=== PATIENT | female | born 1975 | race Caucasian/White ===

== ENCOUNTER → 2016-11-25 | Outpatient (CLI) | payer BC, OTHER ==
[~2016-11-25] MED LIST: BIOT1CAP3 PO; CLR10 PO; CYAN1TAB18 PO; FIBE1CHW PO; HYDR25TA4 PO; KETO10TA PO; MULT1CHW18 PO; OMEP40CA PO; OXYC1TAB3 PO; PROC1TAB5 PO; RIZA10TA18 PO; VENL75CA PO; VIT B12 PO; ZNTT/150 PO; [UNRECOGNIZED DRUG - CODE] PO
--- NOTE | 2016-12-06 16:28 | MAMMOGRAPHY REPORT ---
BILATERAL DIGITAL SCREENING MAMMOGRAM TOMOSYNTHESIS WITH CAD: 11/25/2016 CLINICAL HISTORY: Routine screening. Patient has no complaints. . TECHNIQUE: Bilateral breast tomosynthesis in addition to standard 2D mammography was performed. Curr ent study was also evaluated with a Computer Aided Detection (CAD) system. COMPARISON: Comparison is made to exams dated: 11/25/2010 mammogram and 12/04/2010 mammogram - [facility]. BREAST COMPOSITION: The tissue of both breasts is heterogeneously dense, which may obscure small ma sses. FINDINGS: There is a newly visualized asymmetry in the far posterior right breast, along the collections director ior nipple line on the MLO view that could correlate with nodularity in the slightly medial or later al far posterior right breast on the CC view. Additional spot compression tomosynthesis views and p ossibly ultrasound are recommended. A bilobed 13 mm asymmetry in the lateral posterior right breast on the CC view appears somewhat similar to the prior mammogram from 2010, although spot compression tomosynthesis views and possible ultrasound are recommended. A new 6.2 mm nodular asymmetry is see n in the middle one third of the left breast, slightly inferior to the posterior nipple line on the MLO view, but thought to project along the posterior nipple line on the CC view. Additional spot co mpression tomosynthesis views and possibly ultrasound are recommended. There are stable intramammary lymph nodes in each upper outer quadrant. No focal area of architectu ral distortion or suspicious clustered microcalcification is seen bilaterally. IMPRESSION: ACR BI-RADS CATEGORY 0: INCOMPLETE EVALUATION: NEED ADDITIONAL IMAGING EVALUATION The bilateral breast asymmetries need additional imaging evaluation. The patient will be called to schedule an appointment. Approximately 10% of breast cancers are not detected with mammography. A negative mammographic repor t should not delay biopsy if a clinically suggestive mass is present. Gianna Stephens M.D. ay/:12/06/2016 16:18:57 Doughnut Fryer: Karin VASQUES)(Collette), [facility] letter sent: Addl Imaging 0 BI-RADS Code: ACR BI-RADS Category 0: Incomplete Evaluation: Need Additional Imaging Evaluation
== END | disposition home or self-care (01) ==
LOC: C.MAMM 14:04
PROVIDERS: ATTEND Obstetrics & Gynecology
DX: Z12.31 Encounter for screening mammogram for malignant neoplasm of breast (principal)

== ENCOUNTER → 2016-12-15 | Outpatient (CLI) | payer OTHER ==
--- NOTE | 2016-12-15 14:54 | MAMMOGRAPHY REPORT ---
BILATERAL DIGITAL DIAGNOSTIC MAMMOGRAM TOMOSYNTHESIS AND TARGETED BILATERAL ULTRASOUND: 12/15/2016 CLINICAL HISTORY: Bilateral Asymmetries. TECHNIQUE: Breast tomosynthesis in addition to standard 2D mammography was performed. Bilateral sp ot compression CC and MLO tomosynthesis images including C views were obtained. COMPARISON: Comparison is made to exams dated: 12/04/2010 mammogram, 11/25/2010 mammogram - [facility], and 11/25/2016 mammogram - [facility]. BREAST COMPOSITION: The tissue of both breasts is heterogeneously dense, which may obscure small ma sses. FINDINGS: The previously described nodular asymmetry seen within the right breast on the MLO view e ffaces on the spot compression views and is felt to represent normal fibroglandular tissue. There i s a persistent nodular asymmetry in the right lateral posterior breast seen on the cc view only, whi ch is predominantly obscured by surrounding fibroglandular tissue. The asymmetry appears similar on the spot compression and screening mammogram views to the prior 2011 exam. In the left breast, there is a lobulated circumscribed 7 mm mass seen within the left slightly super ior breast, thought to project laterally based on the tomosynthesis localizer bar. On the spot comp ression cc view, there is an 11 mm asymmetry seen within the left medial breast, which appears simil ar to the prior 2011 exam. Targeted ultrasound was performed of the area of the asymmetries. In the left breast at 3:00, 4 cm from the nipple, there is a lobulated circumscribed mass which measures 5 x 5 mm, which has an echog enic fatty hilum centrally and a peripheral hypoechoic cortex and central internal vascularity. Thi s corresponds with the lobulated circumscribed mass on the MLO view and is consistent with a benign intramammary lymph node. In the left breast at 11:00, 3 cm from the nipple, there is a mass versus 2 adjacent hypoechoic masses, which measures 10 x 4 x 7 mm in conglomerate. This likely correlates with the mammographic asymmetry which is likely stable dating back to the 2010 exam although difficu lt to make an accurate mammographic comparison due to obscured margins. The options of short interv al follow-up versus biopsy were discussed with the patient, and she prefers biopsy. Targeted ultrasound was performed of the right lateral breast in the region of the other mammographi c asymmetry. In the right breast at 10:00, 7 cm from the nipple, there is an oval parallel circumsc ribed 8 x 4 x 7 mm mass. This is thought to correlate with the mammographic asymmetry which has lik maxwell been stable compared to the 2011 exam. The option of short interval follow-up versus biopsy wer e discussed with the patient, and she prefers biopsy. IMPRESSION: ACR BI-RADS CATEGORY 4A: LOW SUSPICION FOR MALIGNANCY, TARGETED ULTRASOUND ACR BI-RADS CATEGORY 4A: LOW SUSPICION FOR MALIGNANCY 1. Hypoechoic 10 mm mass in the left breast at 11:00, and hypoechoic 8 mm mass seen within the right breast at 10:00 on ultrasound. These are thought to correlate with mammographic asymmetries which have possibly been stable since 2011. The options of short interval follow-up versus biopsy were di scussed with the patient, and she prefers biopsy. Therefore, ultrasound guided biopsy x2 is recomme nded for further evaluation. 2. Benign 5 mm intramammary lymph node in the left breast at 3:00. A phone call was made to the physician's office to confirm faxed results were received. The patient has been verbally notified of the results. She tentatively scheduled the biopsies before leaving t he department. Approximately 10% of breast cancers are not detected with mammography. A negative mammographic repor t should not delay biopsy if a clinically suggestive mass is present. Hemalatha Gonzalez M.D. ah/:12/15/2016 12:10:33 Top Bottom Attaching Machine Operator: Lakshmi DAWSON(Ida)(Collette), [facility] letter sent: Abnormal 4/5 BI-RADS Code: ACR BI-RADS Category 4A: Low Suspicion For Malignancy Ultrasound BI-RADS: ACR BI-RADS Category 4A: Low Suspicion For Malignancy
== END | disposition home or self-care (01) ==
LOC: C.MAMM 09:23
PROVIDERS: ATTEND Obstetrics & Gynecology
DX: N63 Unspecified lump in breast (principal)

== ENCOUNTER → 2016-12-31 | Outpatient (CLI) | payer OTHER ==
--- NOTE | 2016-12-31 08:34 | Discharge Instructions ---
Discharge Instructions Procedure Procedure Date: Dec 31, 2016. Reason for visit: Bilateral Masses. Discharge Discharge Date: Dec 31, 2016. Discharge Diagnosis: status post breast biopsies Instructions Activity Recommendations: Additional Limitations (see below) Return to School/Work: no limitations Recommended Home Diet: No Limitations Provider Instructions: ACTIVITY RECOMMENDATIONS: * No lifting, pushing, pulling or exercising the affected side for three days. RETURN TO SCHOOL/WORK: * You may return to work/school after the procedure, but do not perform any strenuous activities for 24 to 48 hours. MEDICATIONS: * Tylenol (two 325 mg) every four to six hours if needed for mild pain (if not allergic to Tylenol). DIET: * Resume previous diet. SPECIAL CARE INSTRUCTIONS: * Keep biopsy site dry for 24 hours. May shower after 24 hours, but do not soak (bathe) incision. * May remove Tegaderm (plastic patch) tomorrow AFTER showering. * Leave the steri-strips on for one week. Allow the steri-strips to fall off by themselves. If not off after one week, you may remove them. You may place a Bandaid crosswise over the strips, if desired. * Apply ice 10 minutes on and 10 minutes off as needed. * Wear a bra at bedtime to sleep more comfortably for 2-3 days. * Your referring physician should have the results after approximately 5 to 7 business days. * Call for unusual bleeding, fever, drainage, etc or if you have any questions call during normal business hours or after hours call Dr Gonzalez, . FOLLOW UP VISIT: Follow-up with Referring Physician as scheduled. Allergies Coded Allergies: Codeine (Verified Adverse Reaction, Intermediate, NAUSEA AND VOMITING, ) Roselyn Puckett Recommendations: Call your doctor if: * Temperature above 101 degrees * Pain not relieved by pain medicine ordered * There is increased drainage or redness from any incision * You have any unanswered questions or concerns. Your Doctors Instructions noted above were prepared by provider Hemalatha Gonzalez. Patient Signature Section: Patient Instructions Signature Page Rosalind Carballo Patient (or Guardian) Signature/Date: I have read and understand the instructions given to me by my caregivers. Caregiver/RN/Doctor Signature/Date: The above-named patient and/or guardian has received patient instructions on this date. + Original Patient Signature Page (only) stays with chart. Please make copy for patient.
--- NOTE | 2016-12-31 14:23 | MAMMOGRAPHY REPORT ---
ULTRASOUND GUIDED BIOPSY RIGHT BREAST: 12/31/2016 CLINICAL HISTORY: Right 10:00 breast mass. PATIENT CONSENT: The procedure, risks and benefits were discussed with the patient and informed writt en consent was obtained. A timeout was performed immediately prior to the procedure. PROCEDURE DESCRIPTION: With ultrasound guidance, aseptic technique, and lidocaine as the local anesth etic (1% lidocaine to anesthetize the skin and 1% lidocaine with epinephrine to anesthetize the deepe r tissues), the mass of concern in the right 10:00 breast was sampled 3 times with a 14-gauge Achieve biopsy needle. Immediately thereafter, with ultrasound guidance, aseptic technique, and lidocaine a s the local anesthetic, a metallic localizer clip was placed centrally in the mass. Direct pressure was applied to the site immediately post procedure and hemostasis was achieved. Postprocedure unilat eral mammograms were performed to confirm placement of the clip in the expected location of the breas t mass. The patient tolerated the procedure without complication. She was given wound care instruct ions. The specimens were sent to pathology for analysis. COMPARISON: Comparison is made to exams dated: 12/15/2016 mammogram, 11/25/2016 mammogram - [facility], 12/04/2010 mammogram, and 11/25/2010 mammogram - [facility]. IMPRESSION: ULTRASOUND GUIDED BIOPSY Ultrasound guided core needle biopsy of the right 10:00 breast mass, with clip placement. The patien t will receive pathology results from her referring provider. Hemalatha Gonzalez M.D. ah/:12/31/2016 08:55:08 Head Well Puller: Alfredo DAWSON(R)(M), [facility]
--- NOTE | 2016-12-31 14:23 | MAMMOGRAPHY REPORT ---
ULTRASOUND GUIDED BIOPSY LEFT BREAST: 12/31/2016 CLINICAL HISTORY: Left 11:00 breast mass. PATIENT CONSENT: The procedure, risks and benefits were discussed with the patient and informed writt en consent was obtained. A timeout was performed immediately prior to the procedure. PROCEDURE DESCRIPTION: With ultrasound guidance, aseptic technique, and lidocaine as the local anesth etic (1% lidocaine to anesthetize the skin and 1% lidocaine with epinephrine to anesthetize the deepe r tissues), the mass of concern in the left 11:00 breast was sampled 3 times with a 14-gauge Achieve biopsy needle. Immediately thereafter, with ultrasound guidance, aseptic technique, and lidocaine a s the local anesthetic, a metallic localizer clip was placed centrally in the mass. Direct pressure was applied to the site immediately post procedure and hemostasis was achieved. Postprocedure unilat eral mammograms were performed to confirm placement of the clip in the expected location of the breas t mass. The patient tolerated the procedure without complication. She was given wound care instruct ions. The specimens were sent to pathology for analysis. COMPARISON: Comparison is made to exams dated: 12/15/2016 ultrasound, 12/15/2016 mammogram, 11/25/2016 mammogram - [facility], 12/04/2010 mammogram, and 11/25/2010 mammogram - [facility]. IMPRESSION: ULTRASOUND GUIDED BIOPSY Ultrasound guided core needle biopsy of the left 11:00 breast mass, with clip placement. The patient will receive pathology results from her referring provider. Hemalatha Gonzalez M.D. ah/:12/31/2016 08:57:09 General Ophthalmologist: Alfredo IRELANDR)(M), [facility]
--- NOTE | 2016-12-31 14:25 | MAMMOGRAPHY REPORT ---
BILATERAL DIGITAL DIAGNOSTIC MAMMOGRAM TOMOSYNTHESIS: 12/31/2016 CLINICAL HISTORY: Status post bilateral ultrasound-guided biopsies. TECHNIQUE: Breast tomosynthesis in addition to standard 2D mammography was performed. Bilateral CC and ML tomosynthesis images including C views were obtained postprocedure. COMPARISON: Comparison is made to exams dated: 12/31/2016 ultrasound biopsy, 12/15/2016 ultrasound, 11/29 mammogram, 11/25/2016 mammogram - [facility], 12/04/2010 mammogram, and 11/26/19 11 mammogram - [facility]. BREAST COMPOSITION: The tissue of both breasts is heterogeneously dense, which may obscure small mas ses. FINDINGS: New biopsy marker clips are seen within the right upper outer quadrant posteriorly as well as left superior breast at approximately 11:30 status post bilateral ultrasound-guided biopsies. Th e biopsy marker clips are located at the site of the previously described mammographic masses, indica ting good correlation between the biopsied sonographic masses and the mammographic masses. No signif icant postbiopsy hematoma is seen. IMPRESSION: POST PROCEDURE IMAGING FOR MARKER PLACEMENT New biopsy marker clips status post bilateral ultrasound-guided biopsies. Pathology results are pend ing. Approximately 10% of breast cancers are not detected with mammography. A negative mammographic report should not delay biopsy if a clinically suggestive mass is present. Hemalatha Gonzalez M.D. ah/:12/31/2016 09:17:20 Stitcher Feeder: Alfredo DAWSON(R)(M), [facility] BI-RADS Code: Post Procedure Imaging For Marker Placement
== END | disposition home or self-care (01) ==
LOC: C.MAMM 07:55
PROVIDERS: ATTEND Obstetrics & Gynecology
DX: D24.2 Benign neoplasm of left breast (principal); D24.1 Benign neoplasm of right breast